=== PATIENT | male | born 1990 | race Caucasian/White ===

== ENCOUNTER 2021-01-30 14:49 | Emergency (ER) | payer SELFPAY ==
[2021-01-30 14:51] VITALS: BP 168/123; PULSE 74; RESP 16; TEMP 36.6; O2SAT 99; BMI 46.0
--- NOTE | 2021-01-30 15:25 | RAD_ITS ---
INDICATION: trauma EXAMINATION/TECHNIQUE: X-RAY - LEFT XR Ankle Min 3 Views 3 VIEWS COMPARISON: None. FINDINGS: Studies of the left ankle in 3 projections shows soft tissue swelling over the lateral malleolus with no evidence of fracture, dislocation, or bony destruction. RAD/Ankle min 3 Views IMPRESSION: Soft tissue swelling over the lateral malleolus with no evidence of fracture. Electronically Signed: Jacek Diop DO at 15:55 EDT Tel , Service support ,
--- NOTE | 2021-01-30 16:06 | EX.ED.DYSGE1 ---
HPI History of Present Illness Chief Complaint: Lower Extremity Injury Narrative Narrative: Patient sustained an inversion of his left ankle prior to arrival. He is describing lateral tenderness no knee pain or proximal fibular tenderness. No foot pain. PFSH PFSH Home Medications No Known/Unobtainable [No Known Home Medications] 05/10/16 [History Last Taken Unknown] Allergy/AdvReac Type Severity Reaction Status Date / Time No Known Allergies Allergy Verified 01/30/21 14:50 Social History Smoking Status: Current every day smoker tobacco type: smokeless tobacco ROS ROS ED ROS Narrative Past medical history: none Medications: Reviewed Social history: Noncontributory Review of systems: Musculoskeletal: Ankle pain as in HPI Skin: No abrasions or lacerations Neurological: No weakness or paresthesias Hematologic: No easy bleeding or easy bruising EXAM Physical Exam Narrative Exam Narrative: Physical exam General: Patient does not appear in significant distress . Head: Normocephalic, Atraumatic Neck: No C-spine tenderness Cardiovascular: Normal distal pulses Back: Nontender, Normal Inspection. Extremities: Tenderness at the lateral malleolus, there is swelling in that region. No proximal fibular tenderness. No proximal fifth metatarsal tenderness. No laxity. Skin: No abrasions, no lacerations Neurological: Normal strength and sensation Const Vital Signs: 01/30/21 14:51 Temperature 97.9 F Temperature Source Temporal Pulse Rate 74 Respiratory Rate 16 Blood Pressure 168/123 H Blood Pressure Mean 138 Pulse Ox 99 Oxygen Delivery Method Room Air MDM MDM MDM Narrative Medical decision making narrative: Patient will be placed in an Aircast and discharged in stable condition Radiography Diagnostic Testing: Radiology Impression Ankle X-Ray 01/30/21 15:25 IMPRESSION: Soft tissue swelling over the lateral malleolus with no evidence of fracture. Electronically Signed: Jacek Diop DO at 15:55 EDT Tel , Service support , Left ankle x-ray interpreted by emergency doctor and radiologist does not show any fracture Discharge Plan Triage Chief Complaint: Lower Extremity Injury ED Provider: Scar Biggs Dx/Rx/DC Orders Clinical Impression: Ankle sprain Instructions: ED Ankle Sprain (Adult) Prescriptions: No Action No Known Home Medications RF: 0 Primary Care Provider: Care Physician,No Primary Referrals: Care Physician,No Primary [Primary Care Provider] - 2 Days Disposition Disposition: Home, Self Care
== END 2021-01-30 16:46 | disposition home or self-care (01) ==
PROVIDERS: Emergency Provider Emergency Medicine
DX: S93.402A Sprain of unspecified ligament of left ankle, initial encounter (principal); X50.9XXA Other and unspecified overexertion or strenuous movements or postures, initial encounter; Y93.9 Activity, unspecified; Y92.89 Other specified places as the place of occurrence of the external cause; Y99.8 Other external cause status; F17.210 Nicotine dependence, cigarettes, uncomplicated
CPT/HCPCS: 73610; 99282

== ENCOUNTER 2021-05-08 23:56 | Emergency (ER) | payer SELFPAY ==
[2021-05-08 23:57] VITALS: BP 184/108; PULSE 83; RESP 15; TEMP 35.7; O2SAT 99; BMI 46.0
--- NOTE | 2021-05-09 00:39 | RAD_ITS ---
STUDY: X-RAY CHEST REASON FOR EXAM: Male, 31 years old. chest pain TECHNIQUE: Frontal and lateral views of the chest. COMPARISON: None. FINDINGS: The lungs are clear and expanded. There is no demonstrated pleural abnormality. Normal size heart. Normal mediastinum and jeff. Normal visualized pulmonary arteries. Normal visualized aortic arch and descending thoracic aorta. Normal visualized thoracic spine. Normal visualized ribs, clavicles, and shoulders. There is no demonstrated abnormality of the visualized soft tissue structures of the upper abdomen. RAD/Chest PA and Lateral IMPRESSION: Normal x-ray examination of the chest. Electronically Signed: Ricardo Knutson MD at 1:42 EST Tel , Service support ,
--- NOTE | 2021-05-09 00:39 | EKG12_ITS ---
Test Reason : CP Blood Pressure : / mmHG Vent. Rate : 077 BPM Atrial Rate : 077 BPM P-R Int : 170 ms QRS Dur : 104 ms QT Int : 386 ms P-R-T Axes : 035 024 017 degrees QTc Int : 436 ms Normal sinus rhythm Normal ECG Confirmed by KWADWO CORONEL, DEANGELO ([id number]), writer editor LUCAS SHAW ([id number]) on 05/10/2021 9:23:11 AM Referred By: JULES Confirmed By:DEANGELO BURKETT MD
[2021-05-09 00:58] LABS: Absolute Lymphocyte Count 2.33 X10^3/uL (0.83-4.51); Absolute Neutrophil Count 4.9 X10^3/uL (2.0-7.7); Basophil# 0.02 X10^3/uL; Basophil% 0.2 % (0-1); Eosinophils% 2.5 % (0-5); Hematocrit 42.2 % (40-54); Hemoglobin 13.9 g/dL (13.0-16.5); Lymphocyte # 2.33 X10^3/ul (0.83-4.51); Lymphocyte % 28.9 % (19-41); Mean Corp Hgb Conc 32.9 g/dL (32-36); Mean Corpuscular Hgb 29.1 pg (27.0-32.0); Mean Corpuscular Volume 88.5 fL (80-94); Mean Platelet Vol. 10.7 fl (6.2-12.0); Monocyte# 0.63 X10^3/uL; Monocyte% 7.8 % (0-10); NRBC Flagged by Analyzer 0 % (0-5); Neutrophil # 4.86 X10^3/uL (2.7-7.7); Neutrophil % 60.4 % (47-70); Platelet Count 232 K/mm3 (150-450); RBC Distribution Width CV 12.7 % (11.6-14.6); RBC Distribution Width SD 41.1 fl (35.1-43.9); Red Blood Count 4.77 M/mm3 (4.6-6.2); White Blood Count 8.1 K/mm3 (4.4-11.0)
[2021-05-09 01:34] LABS: ALB/GLOB Ratio 0.9 RATIO (0.9-2.4); AST(SGOT) 7 U/L (15-37); Alanine Aminotransfer ALT/SGPT 20 U/L (16-61); Albumin, Serum 3.3 g/dL (3.2-5.0); Alkaline Phosphatase 58 U/L (45-117); Anion Gap 5 (5-15); BUN 8 mg/dL (7-18); BUN/Creat Ratio 11.3 RATIO (10-20); Calcium,Total 8.6 mg/dL (8.5-10.1); Chloride 108 mmol/L (98-107); Creatinine, Serum 0.71 mg/dL (0.70-1.30); EST Glomerular Filtration Rate 136 mL/min (>60); Est Glom Filt Rate - Afr Amer 165 mL/min (>60); Estimated Creatinine Clearance 163.94 ml/min; Globulin 3.6 g/dL (2.2-4.2); Glucose 104 mg/dL (74-106); Potassium 3.3 mmol/L (3.5-5.1); Protein, Total 6.9 g/dL (6.4-8.2); Sodium Level 140 mmol/L (136-145); Thyroid Stim Hormone (TSH) 4.28 uIU/mL (0.358-3.74); Troponin-I HS 8 pg/mL (3.0-78.0)
--- NOTE | 2021-05-09 01:38 | ED.VIS.CHEST ---
HPI History of Present Illness Chief Complaint: Chest Pain Informant: patient Narrative Narrative: Patient is a 31-year-old male presenting with an episode of chest discomfort. Patient states started around 3 of 330 this afternoon. He states it is in the center of her chest and then radiated to the left and then back to the center. States he felt his heart was beating fast. He felt a little lightheaded and dizzy at that time. Episode lasted for about 4 hours. The symptoms are since resolved. Patient works in [place] and initially went to [facility]. He had blood work drawn but was not seen. He waited in the waiting room for about 4 hours and then left and came to [place] emergency room. He is never had anything like this before. Denies any swelling of his legs. Denies any history of DVT or PE. Denies any difficulty breathing or edema. No other complaints at this time. [facility] Medical History no medical history Home Medications No Known/Unobtainable [No Known Home Medications] 05/10/16 [History Last Taken Unknown] Allergy/AdvReac Type Severity Reaction Status Date / Time No Known Allergies Allergy Verified 01/30/21 14:50 Social History Smoking Status: Former smoker ROS ROS ED Constitutional Constitutional ED: Denies chills or fever(s) Eyes Eyes: Denies change in vision ENT ENT ED: Denies ear pain or sore throat Cardiovascular Cardiovascular: Reports as per HPI, chest pain and racing heartbeat Respiratory/Chest Respiratory/Chest: Denies cough or dyspnea Gastrointestinal Gastrointestinal: Denies abdominal pain, diarrhea or vomiting Genitourinary Genitourinary ED: Denies dysuria or hematuria Musculoskeletal Musculoskeletal: Denies arthralgias, back pain or myalgias Integumentary Denies rash Neurologic Neurologic: Denies headache(s), paresthesias or weakness Psychiatric Psychiatric: Denies depression EXAM Physical Exam Const Vital Signs: 05/08/21 23:57 05/09/21 00:55 Temperature 96.2 F L Temperature Source Temporal Pulse Rate 83 Respiratory Rate 15 Respiratory Pattern Normal Blood Pressure 184/108 H Blood Pressure Mean 133 Pulse Ox 99 Oxygen Delivery Method Room Air Positive well nourished, well developed and obese General Appearance ED: well developed Nutritional Appearance: obese HEENT Reports moist mucous membranes normocephalic Eyes PERRL and EOMs intact bilaterally Neck supple Chest Wall inspection of chest normal Chest: tenderness sternum Resp normal respiratory effort and clear to auscultation bilaterally Effort and Inspection: Negative for respiratory distress Cardio regular rate, regular rhythm and no murmurs GI normal to inspection, nondistended, normoactive bowel sounds Extremity normal to inspection General Extremety ED: Negative for edema or tenderness General Extremity: Negative for edema Neuro Sensorium / Orientation: awake and alert Motor Exam: Negative for general weakness Psych mental status grossly normal Skin no rashes or lesions noted and no wounds Heart Score History: Slightly/Non-Suspicious ECG: Normal Age: </= 45 years Risk Factors: 1 or 2 Risk Factors Troponin: </= Normal Limit Score: 1 MDM MDM MDM Narrative Medical decision making narrative: Patient evaluated for an episode of racing heart and chest discomfort. Symptoms have since resolved. Patient currently is asymptomatic. He appears nontoxic and in no acute distress. Vital signs are significant for hypertension. EKG does not show any acute ischemic changes. Do not have any prior to compare to. Cardiac work-up including EKG, chest x-ray 2, TSH, CBC and CMP are grossly unremarkable. Patient referred to PCP for outpatient follow-up. This time I do not think he requires extended monitoring or admission to the hospital. Patient is agreeable this plan of care. Counseled the exact cause of his symptoms symptoms are not clear however I think he is stable for outpatient follow-up. Lab Data Attestation: I reviewed the patient's lab results. Labs: Laboratory Results - last 24 hr 05/09/21 05/09/21 00:52 00:52 WBC 8.1 RBC 4.77 Hgb 13.9 Hct 42.2 MCV 88.5 MCH 29.1 MCHC 32.9 RDW Std Deviation 41.1 RDW Coeff of Tono 12.7 Plt Count 232 MPV 10.7 Immature Gran % (Auto) 0.200 Neut % (Auto) 60.4 Lymph % (Auto) 28.9 Mcclain % (Auto) 7.8 Eos % (Auto) 2.5 Baso % (Auto) 0.2 Absolute Neuts (auto) 4.9 Absolute Lymphs (auto) 2.33 Nucleated RBC % 0 Sodium 140 Potassium 3.3 L Chloride 108 H Carbon Dioxide 27.0 Anion Gap 5 BUN 8 Creatinine 0.71 Estim Creat Clear Calc 163.94 Est GFR (MDRD) Af Amer 165 Est GFR (MDRD) Non-Af 136 BUN/Creatinine Ratio 11.3 Glucose 104 Calcium 8.6 Total Bilirubin 0.50 AST 7 L ALT 20 Alkaline Phosphatase 58 Troponin I High Sens 8 Total Protein 6.9 Albumin 3.3 Globulin 3.6 Albumin/Globulin Ratio 0.9 TSH 4.28 H Radiography Chest X-Ray - ED: 2 View, Read by ED Physician and No Acute Disease Rhythm Strip Rhythm Strip: Sinus Rhythm Rate: 77 Ectopy: None EKG Initial EKG: Attestation: I personally reviewed and interpreted this EKG as follows: Comments: Normal sinus rhythm at a rate of 77 Normal axis Normal intervals Normal ST segments Discharge Plan Triage Chief Complaint: Chest Pain ED Provider: Manju Velez Dx/Rx/DC Orders Clinical Impression: Chest pain of uncertain etiology, Heart palpitations Instructions: ED Chest Pain, Uncertain Cause, ED Palpitations Prescriptions: No Action No Known Home Medications RF: 0 Primary Care Provider: Care Physician,No Primary Referrals: Kobe Love MD [STAFF PHYSICIAN] - Care Physician,No Primary [Primary Care Provider] - Disposition Disposition: Home, Self Care
[2021-05-09 02:05] VITALS: BP 166/87; PULSE 77; RESP 24; O2SAT 97
== END 2021-05-09 02:06 | disposition home or self-care (01) ==
PROVIDERS: Emergency Provider Emergency Medicine
DX: R07.9 Chest pain, unspecified (principal); R00.2 Palpitations; E66.9 Obesity, unspecified; Z87.891 Personal history of nicotine dependence
CPT/HCPCS: 71046; 80053; 84443; 84484; 85025; 93005; 99284; A4216

== ENCOUNTER 2021-07-31 22:01 | Emergency (ER) | payer SELFPAY ==
[2021-07-31 22:03] VITALS: BP 195/109; PULSE 79; RESP 14; TEMP 35.8; O2SAT 100; BMI 45.9
--- NOTE | 2021-07-31 22:20 | EDS_ITS ---
HPI History of Present Illness Chief Complaint: Back Detail of Chief Complaint: Atraumatic back pain Informant: patient and spouse/S.O. Onset/Context/Timing Onset: Weeks Context: Gradual Onset Timing: Continuous Quality: Sharp Location: Lumbar Current Severity: Mild Maximum Severity: Mild Worsened by: improves with Movement, Ambulation, Bending and Lifting Relieved by: Sitting Associated Symptoms Associated Symptoms: Radiation to Right Leg; Negative for Numbness, Tingling, Radiation to Left Leg, Fever, Abdominal Pain, Dysuria, Unable to Ambulate, Unable to Transfer, Urinary Retention, Urinary Incontinence, Constipation and Fecal Incontinence Narrative Narrative: 31-year-old male no sniffing past medical history. Only significant surgery was eye surgery as a child. Patient states he has had low back pain for last 3 weeks. Primarily in his lower lumbar area. At times he has radiation to his right leg but does not currently. He denies any fall or injury. No fever or weight change. Says it feels better when he is in a seated position worse if he is upright, bending or lifting. He denies any prior back history or surgery. He denies any fever. He denies any dysuria. No bowel or bladder incontinence or retention. 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 Prior similar symptoms: Yes Recent Illness/Hospitalization: No PFSH PFSH Medical History no medical history no medical history Home Medications No Known/Unobtainable [No Known Home Medications] 05/10/16 [History Last Taken Unknown] Allergy/AdvReac Type Severity Reaction Status Date / Time No Known Allergies Allergy Verified 07/31/21 22:03 Social History Smoking Status: Former smoker ROS ROS ED ROS Narrative Patient denies any recent illness. Review of Systems ROS Unobtainable: Denies due to encephalopathy Constitutional Constitutional ED: Denies fever(s) Eyes Eyes: Denies change in vision ENT ENT ED: Denies ear pain Cardiovascular Cardiovascular: Denies chest pain Respiratory/Chest Respiratory/Chest: Denies dyspnea Gastrointestinal Gastrointestinal: Denies abdominal pain Genitourinary Genitourinary ED: Denies dysuria Musculoskeletal Musculoskeletal: Reports back pain; Denies myalgias Integumentary Denies rash Neurologic Neurologic: Denies headache(s) Psychiatric Psychiatric: Denies depression Endocrine Endocrinology: Denies polyuria Hematologic/Lymphatic Hematologic/Lymphatic: Denies easy bruising Allergic/Immunologic Allergic/Immunologic ED: Denies urticaria EXAM Physical Exam Narrative Exam Narrative: 31-year-old male no acute distress. Vital signs stable. Blood pressure elevated 195/109. H EENT exam unremarkable. Neck nontender. Lungs clear to auscultation bilaterally. Heart regular rhythm no murmur. Abdomen obese with soft nontender normal bowel sounds no peritoneal signs. Patient moving all 4 extremities. Back exam cervical thoracic spine nontender lumbar spine tender around L3-4. No redness. No warmth. No discoloration. No bruising or signs of trauma. No bony deformity. Neurologically is awake and alert. 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 He has normal dorsi and plantarflexion of both lower extremities. Negative straight leg raise bilaterally. No signs of any cauda equina. Normal motor strength, sensation and normal medial thigh sensation. No saddle anesthesia. Const Vital Signs: 07/31/21 22:03 Temperature 96.5 F L Temperature Source Temporal Pulse Rate 79 Respiratory Rate 14 Blood Pressure 195/109 H Blood Pressure Mean 137 Pulse Ox 100 Oxygen Delivery Method Room Air Positive well nourished, well developed and obese; Negative for cachectic, contractures or unkempt General Appearance ED: well developed and NAD; Negative for unkempt, cachectic, contractures or pallor Nutritional Appearance: obese; Negative for cachectic HEENT Reports moist mucous membranes Negative for trauma or tenderness Eyes PERRL and EOMs intact bilaterally Neck no lymphadenopathy, supple and no JVD General: Negative for tenderness Resp normal respiratory effort and clear to auscultation bilaterally Effort and Inspection: Negative for pain with movement Auscultation: Negative for rales, rhonchi or wheezes Cardio regular rate, regular rhythm, S1 normal heart sound, S2 normal heart sound and no murmurs GI normal to inspection, nondistended, normoactive bowel sounds, soft to palpation, non-tender, non-distended and no masses Inspection: Negative for abdominal distention Palpation: Negative for tender, guarding or rebound tenderness present Back/Spine normal to inspection and no thoracic nor lumbar tenderness General Back: Negative for CVA tenderness or scar(s) Cervical Spine: Negative for cervical spine tenderness and Negative for paracervical muscle tenderness Thoracic Spine / Upper Back: Negative for paraspinal muscle tenderness Extremity normal to inspection General Extremety ED: Negative for edema or tenderness General Extremity: Negative for edema Neuro oriented x3 and no sensory deficits noted Neuro Narrative: No cauda equina symptoms. Normal motor strength and sensation and range of motion lower extremities. Sensorium / Orientation: alert; Negative for confused, lethargic or stuporous Motor Exam: strength 5/5 throughout; Negative for strength abnormal Psych mental status grossly normal Appearance: Negative for unkempt Attitude: No agitated Mood & Affect: Negative for depressed or tearful Skin no rashes or lesions noted and no wounds General Skin Exam: Negative for jaundice or pallor Rashes: No rashes noted MDM MDM MDM Narrative Medical decision making narrative: 31-year-old male back pain is reproducible. No trauma. No signs of any nerve or spinal cord impingement. Negative straight leg raise. Normal motor strength and sensation. I do not think any imaging is warranted tonight. Referred to primary care physician for further evaluation and if pain continues he may need advanced imaging of his back. At this time treat with anti-inflammatories. Massage. Heat. Light duty at work. Discharge Plan Triage Chief Complaint: Back ED Provider: Lee Gama Dx/Rx/DC Orders Clinical Impression: Low back pain Instructions: Relieving Back Pain, ED Back Pain (Acute or Chronic) Prescriptions: No Action No Known Home Medications RF: 0 Primary Care Provider: Care Physician,No Primary Referrals: Jacek Mcneal MD [STAFF PHYSICIAN] - 10-14 Days if not better Care Physician,No Primary [Primary Care Provider] - Activity Restrictions/Additional Instructions: Motrin for pain and inflammation. Tylenol for pain. Hot shower warm bath relax the muscles. Massage. Follow-up with a local primary care physician. If pain continues they may have to get more advanced imaging for your back or have you see a specialist. Light duty at work. Disposition Disposition: Home, Self Care
== END 2021-07-31 22:32 | disposition home or self-care (01) ==
LOC: ED 22:32
PROVIDERS: Emergency Provider Emergency Medicine; Visit Provider Emergency Medicine
DX: M54.50 Low back pain, unspecified (principal); Z87.891 Personal history of nicotine dependence
CPT/HCPCS: 99282